=== PATIENT | male | born 1955 ===

== ENCOUNTER 2025-01-04 16:23 | Inpatient (IN) | payer MEDICARE ==
[~2025-01-04] VITALS: Ht 182.9 cm; Wt 56.5 kg
[2025-01-04 17:54] LABS: BASOPHILS ABSOLUTE AUTO 0.03 K/mm3 (0.00-0.23); BASOPHILS PERCENT AUTO 0 % (0-2); EOSINOPHILS ABSOLUTE AUTO 0.02 K/mm3 (0.00-0.68); EOSINOPHILS PERCENT AUTO 0 % (0-6); Hematocrit 43.5 % (37.0-53.0); IMMATURE GRAN ABSOLUTE AUTO 0.02 K/mm3 (0.00-0.10); IMMATURE GRAN PERCENT AUTO 0 % (0-1); LYMPHOCYTES ABSOLUTE AUTO 1.62 K/mm3 (0.84-5.20); LYMPHOCYTES PERCENT AUTO 23 % (21-46); MONOCYTES ABSOLUTE AUTO 0.41 K/mm3 (0.16-1.47); MONOCYTES PERCENT AUTO 6 % (4-13); Mean Corpuscular HGB 32.5 pg (26.0-34.0); Mean Corpuscular HGB Conc 34.5 g/dL (31.5-36.5); Mean Corpuscular Volume 94 fL (80-100); NEUTROPHILS ABSOLUTE AUTO 4.82 K/mm3 (1.96-9.15); NEUTROPHILS PERCENT AUTO 70 % (41-73); Platelet Count 147 K/mm3 (150-400); RDW Coefficient Variation 12.4 % (11.7-14.2); RDW Standard Deviation 42.7 fL (35.1-46.3); Red Blood Cell Count 4.62 M/mm3 (4.30-5.90); White Blood Cell Count 6.92 K/mm3 (4.00-11.30)
[2025-01-04 18:27] LABS: Albumin, Blood 3.2 g/dL (3.4-5.0); Albumin/Globulin Ratio 0.8 (0.8-1.8); Bilirubin, Total 1.2 mg/dL (0.1-1.0); Creatinine, Blood 0.63 mg/dL (0.60-1.20); Globulin, Blood 3.9 g/dL (2.2-4.0); Total Protein, Blood 7.1 g/dL (6.4-8.2)
[2025-01-04 19:06] LABS: Influenza A, PCR NEGATIVE (NEGATIVE); Influenza B, PCR NEGATIVE (NEGATIVE); Resp Syncytial Virus, PCR NEGATIVE (NEGATIVE); SARS-Cov-2 (COVID-19) PCR, MMC NEGATIVE (NEGATIVE)
[2025-01-04] MEDS ORDERED: MethylPREDNISolone Sod Succ 125 MG Vial IV ONE (21:30)
[2025-01-04] MEDS ORDERED: Ipratropium/Albuterol SulF 2.5-0.5MG/3 ML Amp INH ONE (21:30)
[2025-01-04] MEDS ORDERED: NS 1,000 ML IV SCH (22:00)
[2025-01-04 22:03] LABS: Source, Urine Clean Catch
[2025-01-04 22:20] LABS: Appearance, Urine Clear (Clear); Bilirubin, Urine Neg (Neg); Blood, Urine 1+ (Neg); Color, Urine Yellow (P-Yellow); Glucose Qualitative, Urine Neg (Neg); Ketones, Urine 4+ (Neg); Leukocyte Esterase, Urine 1+ (Neg); Nitrite, Urine Neg (Neg); Protein, Urine 1+ (Neg); Urobilinogen, Urine 2+ (Normal)
[2025-01-04 22:26] LABS: Bacteria Rare /hpf; Squamous Epithelial Cells Rare /hpf (Few)
[2025-01-04] MEDS ORDERED: FLU VACC TS2024-25(6MOS UP)/PF 45 MCG/0.5 ML SYRINGE IM ONE (22:45)
[2025-01-04] MEDS ORDERED: Ipratropium/Albuterol SulF 2.5-0.5MG/3 ML Amp INH PRN (22:45)
[2025-01-04] MEDS ORDERED: Guaifenesin/Dextromethorphan Syrup 5 ML UDC PO PRN (22:45)
[2025-01-04] MEDS ORDERED: Ondansetron HCl 2 MG / ML 2ML Vial IV PRN (22:45)
[2025-01-04] MEDS ORDERED: Enoxaparin 40 MG/0.4 ML SYR SC SCH (23:00)
[2025-01-04] MEDS ORDERED: Azithromycin 500 MG in NS 250 ML IV SCH (23:53)
[2025-01-05] MEDS ORDERED: MethylPREDNISolone Sod Succ 125 MG Vial IV SCH ×2 (02:00)
[2025-01-05 06:18] LABS: BASOPHILS ABSOLUTE AUTO 0.01 K/mm3 (0.00-0.23); BASOPHILS PERCENT AUTO 0 % (0-2); EOSINOPHILS PERCENT AUTO 0 % (0-6); Hematocrit 39.2 % (37.0-53.0); Hemoglobin 13.6 g/dL (13.5-17.5); IMMATURE GRAN ABSOLUTE AUTO 0.01 K/mm3 (0.00-0.10); IMMATURE GRAN PERCENT AUTO 0 % (0-1); LYMPHOCYTES ABSOLUTE AUTO 0.47 K/mm3 (0.84-5.20); LYMPHOCYTES PERCENT AUTO 14 % (21-46); MONOCYTES ABSOLUTE AUTO 0.02 K/mm3 (0.16-1.47); MONOCYTES PERCENT AUTO 1 % (4-13); Mean Corpuscular HGB 32.9 pg (26.0-34.0); Mean Corpuscular HGB Conc 34.7 g/dL (31.5-36.5); Mean Corpuscular Volume 95 fL (80-100); NEUTROPHILS ABSOLUTE AUTO 2.79 K/mm3 (1.96-9.15); NEUTROPHILS PERCENT AUTO 85 % (41-73); Platelet Count 144 K/mm3 (150-400); RDW Coefficient Variation 12.5 % (11.7-14.2); RDW Standard Deviation 43.6 fL (35.1-46.3); Red Blood Cell Count 4.14 M/mm3 (4.30-5.90)
[2025-01-05 06:55] LABS: Albumin, Blood 2.9 g/dL (3.4-5.0); Albumin/Globulin Ratio 0.8 (0.8-1.8); Bilirubin, Total 0.9 mg/dL (0.1-1.0); Bun/Creatinine Ratio 32.5 (12.0-20.0); Calcium, Blood 8.1 mg/dL (8.5-10.1); Creatinine, Blood 0.62 mg/dL (0.60-1.20); Globulin, Blood 3.8 g/dL (2.2-4.0); Potassium, Blood 4.2 mmol/L (3.5-5.5); Total Protein, Blood 6.7 g/dL (6.4-8.2)
[2025-01-05 09:21] VITALS: BP 134/70
--- NOTE | 2025-01-05 14:51 | NUR ---
MET WITH PATIENT TO PROVIDE EDUCATION ABOUT NEW COPD DX. PATIENT IS A/O, SITTING UP IN BED EATING LUNCH. KEPT CONVERSATION BRIEF PATIENT HAD JUST RECIEVED HIS LUNCH. LEFT WRITTEN MATERIAL. ROUNDED ON PATIENT AFTER LUNCH, HE WAS ASLEEP AT THIS TIME.
[2025-01-05 15:51] VITALS: BP 130/82
--- NOTE | 2025-01-05 18:34 | NUR ---
SHIFT SUMMARY- PT ALERT, ORIENTED AND INDEPENDENT IN THE ROOM. PT ADMITTED THROUGH THE ED FOR COPD EXACERBATION, THIS IS A NEW Dx FOR THE PT. PT HAS NO PCP AND NO CHRONIC Dx. HE TAKES NO MEDICATIONS AT HOME ASSIDE FROM THE OCCASSIONAL TYLENOL. PT WAS A BIT EMMOTIONAL EARLIER TODAY HE IS NOT USED TO HAVING PEOPLE TO HELP WITH THINGS, OR TO BE ING ON O2. PT IS CURRENTLY ON 3L O2 VIA NC BASELINE IS RA. PT HAS EXTREME SOB AND DYSPNEA WITH EXERTION. HE IS CURRENTLY IN BED, CALL LIGHT IN REACH, NO S&S OF DISTRESS NOTED AT THIS TIME.
[2025-01-05] MEDS ORDERED: NS 250 ML IV PRN (20:25)
[2025-01-05 20:33] VITALS: BP 125/74
[2025-01-06 00:02] VITALS: BP 130/88
[2025-01-06 05:16] VITALS: BP 133/74
--- NOTE | 2025-01-06 05:33 | NUR ---
AAOX4, USES CALL LIGHT FOR NEEDS. REQUESTS STAFF IN ROOM WHILE AMBULATING INDEPENDENTLY TO BR D/T SOB. PT RECOVERS SLOWLY AFTER EXCERTION. TELE IN PLACE, SR@ 60 WITH BBB. 2-3L O2 VIA NC TO KEEP SAT ABOVE 90%. LAC IV. ENCOURAGED TO FOLLOW-UP WITH PULM OUT PT. FOR PRT. PALLATIVE CARE CONSULT IN FOR CODE STATUS AND MANAGE DC.
[2025-01-06 05:40] LABS: Hematocrit 39.1 % (37.0-53.0); Hemoglobin 13.6 g/dL (13.5-17.5); Mean Corpuscular HGB 32.6 pg (26.0-34.0); Mean Corpuscular HGB Conc 34.8 g/dL (31.5-36.5); Mean Corpuscular Volume 94 fL (80-100); Mean Platelet Volume 10.1 fL (9.1-12.4); Platelet Count 189 K/mm3 (150-400); RDW Coefficient Variation 12.4 % (11.7-14.2); RDW Standard Deviation 42.6 fL (35.1-46.3); Red Blood Cell Count 4.17 M/mm3 (4.30-5.90); White Blood Cell Count 12.35 K/mm3 (4.00-11.30)
[2025-01-06 06:31] LABS: Bun/Creatinine Ratio 37.9 (12.0-20.0); Calcium, Blood 8.7 mg/dL (8.5-10.1); Creatinine, Blood 0.58 mg/dL (0.60-1.20); Magnesium, Blood 2.4 mg/dL (1.6-2.4); Phosphorus, Blood 3.1 mg/dL (2.5-4.9); Potassium, Blood 4.2 mmol/L (3.5-5.5)
[2025-01-06 07:17] VITALS: BP 121/68
[2025-01-06] MEDS ORDERED: Mometasone Furoate Inhaler 220 mcg 14 ACT INH SCH (07:45)
[2025-01-06] MEDS ORDERED: Chlorphiramine/Hydrod Polistir 5 ML UDC PO PRN (07:55)
[2025-01-06] MEDS ORDERED: CODEINE PO PRN (07:55)
[2025-01-06] MEDS ORDERED: GUAIFENESIN PO PRN (07:55)
[2025-01-06] MEDS ORDERED: Loratadine 10 MG Tab PO SCH (09:00)
[2025-01-06] MEDS ORDERED: Azithromycin 250 MG Tab PO SCH (09:00)
[2025-01-06] MEDS ORDERED: Cephalexin Monohydrate 500 MG Cap PO SCH (09:00)
--- NOTE | 2025-01-06 16:25 | NUR ---
PER REPORT PT HAS REBOUNDED AND HAS DONE VERY WELL TODAY. PT HAS HAD NO C/O PAIN, CHEST PAIN OR SOB.
[2025-01-06 17:22] VITALS: BP 125/76
[2025-01-06 22:09] VITALS: BP 123/75
[2025-01-07 00:12] VITALS: BP 117/73
[2025-01-07 04:08] VITALS: BP 114/67
--- NOTE | 2025-01-07 04:20 | NUR ---
PT A&O X4, PO INTAKE WNL, VS WNL WITH EXCEPTION OF HR. TELE SHOWS SB WITH BBB, HR RAN IN 40-50'S THIS SHIFT, ASYMPTOMATIC. O2 2L HFC. L/S CLEAR BUT DIMINISHED. UP TO BR WITH SUPERVISION. DENIES PAIN, CALLS APPROPRIATELY. PLAN TO D/C HOME WITH SCHEDULED PFT'S.
[2025-01-07 05:17] LABS: Hematocrit 37.6 % (37.0-53.0)
[2025-01-07 05:42] LABS: Bun/Creatinine Ratio 38.1 (12.0-20.0); Calcium, Blood 8.4 mg/dL (8.5-10.1); Creatinine, Blood 0.71 mg/dL (0.60-1.20); Magnesium, Blood 2.4 mg/dL (1.6-2.4); Potassium, Blood 4.2 mmol/L (3.5-5.5)
[2025-01-07 07:30] VITALS: BP 125/70
[2025-01-07 11:51] VITALS: BP 140/86
[2025-01-07 15:52] VITALS: BP 120/82
--- NOTE | 2025-01-07 19:07 | NUR ---
SHIFT SUMMARY PT A&OX4. PT ADMITTED DUE TO COPD EXAC. PT REPORTS NO CHEST PAIN DISCOMFORT. PT IS SBA. IS CONT OF URINE AND BM. REPIRATORY CAME TO DO HOME O2 EVAL AND REPORTED PT TO BE ON RA. PT MAINTAINING SATS ON ROOM AIR. REPORTED COMPLETED RESPIRATORY THERAPY EVAL TO DR. SALINAS, DR. SALINAS REPORTED WILL LIKELY GO HOME TOMORROW. PT IV WASN'T PATENT, NEW IV INSERTED, PT REPORTED "NO COMPLAINTS." VSS. PT ON TELE. GAVE INCENTIVE SPIROMETER TO PT, PT EDUCATED AND PERFORMED CORRECT USE. PT IN BED, BED IN LOWEST POSITION. CALL LIGHT IN REACH.
[2025-01-07 19:15] VITALS: BP 115/76
[2025-01-08] VITALS: BP 118/61
[2025-01-08 03:59] VITALS: BP 116/74
--- NOTE | 2025-01-08 04:43 | NUR ---
PT A&O X4, VS WNL, REMAINS ON RA, WITH DECREASE IN SAT TO 88% X2. HR STILL REMAINS IN 40-50 RANGE. TELE IS SB WITH BBB. PT USING IS AT BEDSIDE. TO WORK WITH PT AND OT, AND RECIEVES IVP STEROIDS. DENIES PAIN.
[2025-01-08 06:29] LABS: Hematocrit 39.2 % (37.0-53.0); Hemoglobin 13.3 g/dL (13.5-17.5)
[2025-01-08 06:54] LABS: Bun/Creatinine Ratio 46.9 (12.0-20.0); Calcium, Blood 8.5 mg/dL (8.5-10.1); Creatinine, Blood 0.64 mg/dL (0.60-1.20); Magnesium, Blood 2.5 mg/dL (1.6-2.4); Potassium, Blood 4.3 mmol/L (3.5-5.5)
[2025-01-08 07:17] VITALS: BP 143/69
[2025-01-08 11:25] VITALS: BP 141/85
[2025-01-08] MEDS ORDERED: AZIT250 PO (13:58)
[2025-01-08] MEDS ORDERED: CEPH500 PO (13:59)
[2025-01-08] MEDS ORDERED: ASMANEX220 MC8 INH (14:03)
[2025-01-08] MEDS ORDERED: ALBU8HFA2 INH (14:03)
[2025-01-08] MEDS ORDERED: Prednisone20 MG PO (14:06)
[2025-01-08] MEDS ORDERED: [UNRECOGNIZED DRUG - OTHER] PO (14:13)
--- NOTE | 2025-01-08 15:40 | NUR ---
DISCHARGE SUMMARY PT DISCHARGED TODAY AT APPROX 1540. PICKED UP BY FRIEND IN PRIVATE VEHICLE, ABLE TO TRANSFER SELF. IV REMOVED AND SITE APPEARED WNL - CATHETER TIP INTACT. DISCHARGE INSTRUCTIONS REVIEWED WITH PT. NEW RX FAXED TO [facility] [address] PER PT REQUEST.
== END 2025-01-08 15:40 | disposition home health service (06) | DRG 189 ==
LOC: ER 16:23 → ERHOLD 16:24 → MEDS 16:24 → ENPENDDIS 01-08 13:29 → MEDS 01-08 15:40
PROVIDERS: Emergency Medicine; Hospitalist; Physician Assistant; ADMIT Internal Medicine
DX: J96.01 Acute respiratory failure with hypoxia (principal); J44.1 Chronic obstructive pulmonary disease with (acute) exacerbation; J43.9 Emphysema, unspecified; E86.0 Dehydration; Z87.891 Personal history of nicotine dependence
CPT/HCPCS: 0241U; 36415; 71046; 80048; 80053; 81001; 83735; 83880; 84100; 84484; 85014; 85018; 85025; 85027; 87070; 87086; 87205; 93005; 93010; 94640; 94664; 94760; 94761; 96365; 96372-59; 96375-59; 96376; 97116; 97162; 97530; 99285-25; A9270; G0378; J0456; J1650; J2919; J7030; J7050